=== PATIENT | female | born 1980 | race Caucasian/White ===

== ENCOUNTER → 2018-11-10 | Outpatient (CLI) | payer OTHER ==
[~2018-11-10] MED LIST: DOCU5LIQ PO; IBUP80TA PO; MAPA500T17 PO; MOM30SS PO
--- NOTE | 2018-11-10 18:41 | REP ---
BILATERAL LOWER EXTREMITY DUPLEX DOPPLER VENOUS ULTRASOUND WITH EVALUATION FOR VENOUS REFLUX: Real-time compression and duplex Doppler interrogation of bilateral lower extremity deep venous systems is performed. Bilaterally, common femoral, superficial femoral and popliteal veins are fully compressible with transducer pressure and demonstrates normal spontaneous and phasic flow without evidence of deep venous thrombosis. Evaluation for venous reflux is performed bilaterally. There is minimal reflux in the right common femoral vein and anterior accessory greater saphenous vein. There is reflux in the greater saphenous vein on the right at the saphenofemoral junction with a duration of 5.8 seconds, AP diameter of 10 mm and also at the mid thigh with a duration of 6.4 seconds, AP diameter 5 mm. There is no reflux in the greater saphenous vein at the knee which measures 4 mm. There is no reflux in the superficial femoral or popliteal veins and no reflux is seen in the lesser saphenous vein which measures 2 mm. Collateral vessel seen in the distal thigh. On the left there is minimal reflux in the common femoral vein and anterior accessory greater saphenous vein. There is reflux in the greater saphenous vein at the saphenofemoral junction with a duration of 9.4 seconds, AP diameter of 6 mm. Also at the mid thigh with a duration of 7.9 seconds, AP diameter 3 mm. There is no reflux in the greater saphenous vein at the knee which measures 6 mm. There is no reflux in the superficial femoral vein with only minimal reflux in the popliteal vein. There is no reflux in the lesser saphenous vein on the left which measures 2 mm. A collateral vessel is seen in the distal thigh. Electronically Signed by Tye Levy MD 11/13/2018 01:08 P
== END ==
LOC: M RAD 11:30
PROVIDERS: ATTEND Surgery Vascular Surgery
DX: I87.2 Venous insufficiency (chronic) (peripheral) (principal)

== ENCOUNTER → 2019-10-16 | Outpatient (CLI) | payer OTHER ==
[~2019-10-16] MED LIST changes: +MIRE1IUD IU; +OXYC1TAB23 PO
== END ==
LOC: M LABSMTC 09:57
PROVIDERS: ATTEND Anesthesiology
DX: Z01.818 Encounter for other preprocedural examination (principal); Z11.59 Encounter for screening for other viral diseases
CPT/HCPCS: C9803; U0003

== ENCOUNTER 2019-10-19 08:07 | Day surgery (SDC) | payer OTHER ==
[~2019-10-19] VITALS: Ht 167.6 cm; Wt 99.5 kg
[~2019-10-19 08:07] MED LIST changes: +LIDOCAINE 1% MDV 20ML VIAL SQ PRN; +LIDOCAINE 2% 100MG/5ML SDV (FOR ANES.) As Ordered ONE; +LR 1,000 ML IV ONE; +MIDAZOLAM INJ 2MG/2ML VIAL (J2250 PER 1MG) As Ordered ONE; +ONDANSETRON 4MG/2ML VIAL As Ordered ONE; -OXYC1TAB23 PO; +ceFAZolin SOD 2 GM in IV 1 EA IV ONE; +dexameTHASONE 4 MG/ML 1ML VIAL (J1100 PER 1MG) As Ordered ONE; +fentaNYL 100 MCG/2 ML INJECTION (J3010) As Ordered ONE; +propofoL 200 MG/20 ML VIAL As Ordered ONE
[2019-10-19 08:35] LABS: HEMATOCRIT 39.7 % (36.0-47.0); HEMOGLOBIN 12.6 g/dl (12.0-15.5); MEAN CORPUSCULAR HEMOGLOBIN 27.5 pg (27.0-33.0); MEAN CORPUSCULAR HGB CONC 31.7 g/dl (32.0-36.5); MEAN CORPUSCULAR VOLUME 86.5 fl (80.0-96.0); PLATELET COUNT, AUTOMATED 245 10^3/uL (150-450); RED BLOOD COUNT 4.59 10^6/uL (4.00-5.40); WHITE BLOOD COUNT 7.6 10^3/uL (4.0-10.0)
[2019-10-19] MEDS ORDERED: LIDOCAINE 1% MDV 20ML VIAL As Ordered ONE (09:41)
[2019-10-19] MEDS ORDERED: LIDOCAINE W/EPINEPHRINE 1% 20ML VIAL As Ordered ONE (09:41)
[2019-10-19] MEDS ORDERED: HEPARIN SOD (PORCINE) 5000UNITS/ML VIAL (J1644 PER 1000UNITS) As Ordered ONE (09:42)
[2019-10-19] MEDS ORDERED: ACETAMINOPHEN 1000MG 100ML IV BTL (OFIRMEV) (J0131 PER 10MG) As Ordered ONE (10:09)
[2019-10-19] MEDS ORDERED: propofoL 200 MG/20 ML VIAL As Ordered ONE (10:09)
--- NOTE | 2019-10-19 11:08 | ROOPDOC ---
[facility] Report Of Operation Report of Operation DATE OF PROCEDURE: 10/19/19 PREPROCEDURE DIAGNOSES: Right symptomatic greater saphenous vein reflux and varicose veins POSTPROCEDURE DIAGNOSES: Same. PROCEDURE: 1. Ultrasound-guided access right greater saphenous vein 2. Radiofrequency ablation right greater saphenous vein, 8 cycles SURGEON: Roseline Jay MD ANESTHESIA: LMA anesthesia and local anesthesia INDICATION FOR PROCEDURE: This is a very pleasant 39-year-old patient with symptomatic right lower extremity significant greater saphenous vein reflux with varicose veins. Risks benefits and alternatives to radiofrequency ablation were explained to the patient she was agreeable to proceed. Informed consent was obtained. REPORT OF OPERATION: The patient was brought to the operating room in stable condition and placed supine on the OR table. Anesthesia and antibiotics were administered without consultation. Her right lower extremity and groin were prepped and draped in a sterile fashion. A timeout was performed. The greater saphenous vein on the right was examined with ultrasound from below the knee to the groin. It was found to be in continuity. We then accessed the vein at the knee under ultrasound guidance after anesthetizing the skin with local anesthesia. A wire was passed through this access under ultrasound guidance and the needle was removed. A 7 Maltese sheath was placed and flushed with saline. Through this access, we advanced a radiofrequency ablation catheter to the saphenofemoral junction. Ultrasound confirmed that the catheter tip was 2 cm distal from the junction. We then injected tumescent fluid around the vein for the length of the catheter under ultrasound guidance. We again confirmed under ultrasound that the tip of the catheter was 2 cm away from the junction after injecting tumescence. We then performed radiofrequency ablation under ultrasound visualization and compression. A total of 8 cycles were performed. Pressure was held at the access site after removal of the radiofrequency ablation catheter. Ultrasound confirmed that there was still flow in the common femoral vein and saphenofemoral junction, but the greater saphenous vein distal to this was successfully ablated. Next, the leg was cleaned and dried. Steri-Strips were placed over the access site and the injection sites for the tumescence. Dry gauze was placed over the medial thigh and the thigh was wrapped with Kerlix. We then wrapped the patient's right leg from the foot to the groin with 4 inch Luis wrap. She was allowed to awaken from anesthesia was taken to recovery in stable condition. She tolerated the procedure and anesthesia well. ESTIMATED BLOOD LOSS: Approximately 1 mL. COMPLICATIONS: None. PLAN: Okay to resume home diet medications. Okay to ambulate, but no strenuous exercise for 3 days. Try to leave Luis wrap is intact 24 hours. After 24 hours, okay to remove the Luis wrap and the gauze and take a shower. Steri-Strips should follow up on their own over the next few days. After the shower, rewrap the leg from the foot to the hip. Best if Luis wrap can be worn the majority of the time over the next 3 days. Okay for warm compresses or ice packs for comfort if needed. Okay to take [id number] analgesia as needed. Elevate the right lower extremity as much as possible over the next few days. We will follow up with the patient and his scheduled appointment next week for repeat venous duplex to make sure that the thrombus has not propagated into the common femoral vein and an appointment. We appreciate the opportunity to participate in the care of this patient. ROSELINE JAY MD Oct 19, 2019 11:08
[2019-10-19] MEDS ORDERED: oxyCODONE 5MG TAB As Ordered ONE (11:09)
[2019-10-19] MEDS: oxyCODONE 5MG TAB PO PRN ×2 (11:10→11:18)
[2019-10-19] MEDS ORDERED: OXYC1TAB23 PO (11:13)
[2019-10-19] MEDS ORDERED: fentaNYL 100 MCG/2 ML INJECTION (J3010) IV PRN ×2 (11:15)
--- NOTE | 2019-10-19 11:30 | REP ---
RIGHT LOWER EXTREMITY ULTRASOUND: Sonographic guidance. HISTORY: Radiofrequency ablation. Sonographic guidance is provided to Dr. Jay who performed radiofrequency ablation procedure. Electronically Signed by Thomas Hu MD 10/19/2019 12:50 P
[2019-10-19 11:50] VITALS: BP 128/62
== END 2019-10-19 12:17 | disposition home or self-care (01) ==
LOC: M SDC 08:07
PROVIDERS: ATTEND Surgery Vascular Surgery
DX: I87.2 Venous insufficiency (chronic) (peripheral) (principal); I83.811 Varicose veins of right lower extremity with pain
CPT/HCPCS: 36415; 36475; 76940; 81025; 85027; C1894; J0131; J0690; J1100; J1644; J2250; J2405; J3010

== ENCOUNTER → 2019-10-22 | Outpatient (CLI) | payer OTHER ==
[~2019-10-22] MED LIST changes: -LIDOCAINE 1% MDV 20ML VIAL SQ PRN; -LIDOCAINE 2% 100MG/5ML SDV (FOR ANES.) As Ordered ONE; -LR 1,000 ML IV ONE; -MIDAZOLAM INJ 2MG/2ML VIAL (J2250 PER 1MG) As Ordered ONE; -ONDANSETRON 4MG/2ML VIAL As Ordered ONE; +OXYC1TAB23 PO; -ceFAZolin SOD 2 GM in IV 1 EA IV ONE; -dexameTHASONE 4 MG/ML 1ML VIAL (J1100 PER 1MG) As Ordered ONE; -fentaNYL 100 MCG/2 ML INJECTION (J3010) As Ordered ONE; -propofoL 200 MG/20 ML VIAL As Ordered ONE
--- NOTE | 2019-10-22 11:44 | REP ---
RIGHT LOWER EXTREMITY DUPLEX VENOUS ULTRASOUND: HISTORY: Status post radiofrequency ablation and right greater saphenous vein. Rule out DVT. FINDINGS: Occlusive thrombus is seen throughout the right greater saphenous vein extending up to within 1.2 cm of its junction with the common femoral. The deep veins in the right lower extremity are anechoic and fully compressible on two-dimensional scanning. Color flow and spectral Doppler interrogation are unremarkable. There is no evidence of DVT. IMPRESSION: Occlusive of the treated greater saphenous vein as expected. No evidence of deep vein thrombosis. Electronically Signed by Thomas Hu MD 10/22/2019 05:01 P
== END ==
LOC: M RAD 07:03
PROVIDERS: ATTEND Surgery Vascular Surgery
DX: I87.2 Venous insufficiency (chronic) (peripheral) (principal); I83.811 Varicose veins of right lower extremity with pain

== ENCOUNTER → 2022-02-05 | Outpatient (REF) | payer OTHER, BC | LOC: M SFHCWAGY 13:09 | PROVIDERS: ATTEND Advanced Practice Midwife | DX: Z12.4 Encounter for screening for malignant neoplasm of cervix (principal) | CPT/HCPCS: 87624; G0123 ==

== ENCOUNTER 2024-03-04 14:58 | Emergency (ER) | payer OTHER ==
[~2024-03-04] VITALS: Ht 165.1 cm; Wt 102.3 kg
[2024-03-04 15:02] VITALS: BP 139/84; TEMP 97.5; O2SAT 96
[2024-03-04] MEDS ORDERED: ALLE12TA31 PO (15:18)
[2024-03-04] MEDS ORDERED: TOPI-21 (15:18)
[2024-03-04] MEDS ORDERED: PRED50TA (15:18)
[2024-03-04] MEDS ORDERED: FOLI1TAB11 (15:18)
[2024-03-04] MEDS: DERMABOND TOPICAL SKIN ADHESIVE TOP ONE (15:52)
== END 2024-03-04 15:52 | disposition home or self-care (01) ==
LOC: M ED 14:58
DX: S61.211A Laceration without foreign body of left index finger without damage to nail, initial encounter (principal); Y92.019 Unspecified place in single-family (private) house as the place of occurrence of the external cause; Y93.9 Activity, unspecified; Y99.9 Unspecified external cause status; Z91.09 Other allergy status, other than to drugs and biological substances; Z79.52 Long term (current) use of systemic steroids; Z79.899 Other long term (current) drug therapy